=== PATIENT | male | born 1990 | race Two or more races ===

== ENCOUNTER 2025-07-16 13:08 | Emergency (ER) | payer SELFPAY ==
[~2025-07-16] VITALS: Ht 167.6 cm; Wt 85.7 kg
[2025-07-16] MEDS: PANTOPRAZOLE 40 MG TAB PO ONE (13:50)
[2025-07-16 13:51] LABS: Hematocrit 46.7 % (41.0-53.0); Hemoglobin 15.8 g/dL (13.5-17.5); Mean Corpuscular Hemoglobin 28.9 pg (28.0-32.0); Mean Corpuscular Volume 85.2 fL (80.0-100.0); Nucleated Red Blood Cells % 0.0 %
[2025-07-16 13:57] VITALS: BP 110/63; RESP 18; TEMP 98.1; O2SAT 92
--- NOTE | 2025-07-16 14:14 | ED.PDOC ---
HPI Comments 34 y/o M, with PMHx of GERD presents to the ED for CC of chest pain. Patient states, he has been experiencing non-radiating substernal chest pain sudden onset, this morning (07/16/25). Patient relays, symptoms to feel similar to those of GERD. Patient denies shortness of breath, palpitations, headache, dizziness, nausea, or vomiting. No other symptoms or modifying factors present at this time. Chief Complaint: Chest Pain Time Seen by MD: 13:30 Reviewed Notes: Nurses Notes, Medications, Allergies Allergies: Coded Allergies: NO KNOWN ALLERGIES (Unverified , 07/16/25) Mode of Arrival: Ambulatory Severity: Moderate Timing: Days Duration: Since onset Prehospital treatment: None Location: Substernal Radiation: No Radiation Onset: At Rest Cardiac Risk Factors: None PE Risk Factors: None History of: None Modifying Factors: Nothing Associated Signs and Symptoms: None Past Medical History PAST MEDICAL HISTORY: GERD Surgical History: Denies all surgeries Family History Family History: Unknown Social History Smoker: Non-Smoker Alcohol: Denies ETOH Use Drugs: Denies Drug Use Lives In: Home Constitutional: denies: chills, diaphoresis, fatigue, fever, malaise, sweats, weakness, others EENTM: denies: blurred vision, double vision, ear bleeding, ear discharge, ear drainage, ear pain, ear ringing, eye pain, eye redness, hearing loss, mouth pain, mouth swelling, nasal discharge, nose bleeding, nose congestion, nose pain, photophobia, tearing, throat pain, throat swelling, voice changes, others Respiratory: denies: cough, hemoptysis, orthopnea, SOB at rest, shortness of breath, SOB with excertion, stridor, wheezing, others Cardiovascular: reports: chest pain; denies: dizzy spells, diaphoresis, Dyspnea on exertion, edema, irregular heart beat, left arm pain, lightheadedness, palpitations, PND, syncope, others Gastrointestinal: denies: abdomen distended, abdominal pain, blood streaked bowels, constipated, diarrhea, dysphagia, difficulty swallowing, hematemesis, melena, nausea, poor appetite, poor fluid intake, rectal bleeding, rectal pain, vomiting, others Genitourinary: denies: burning, dysuria, flank pain, frequency, hematuria, incontinence, penile discharge, penile sore, pain, testicle pain, testicle swelling, urgency, others Neurological: denies: dizziness, fainting, headache, left sided numbness, left sided weakness, numbness, paresthesia, pre-existing deficit, right sided numbness, right sided weakness, seizure, speech problems, tingling, tremors, weakness, others Musculoskeletal: denies: back pain, gout, joint pain, joint swelling, muscle pain, muscle stiffness, neck pain, others Integumetry: denies: bruises, change in color, change in hair/nails, dryness, laceration, lesions, lumps, rash, wounds, others Allergic/Immunocompromised: denies: Difficulty Healing, Frequent Infections, Hives, Itching, others Hematologic/Lymphatic: denies: anemia, blood clots, easy bleeding, easy bruising, swollen glands, others Endocrine: denies: excessive hunger, excessive sweating, excessive thirst, excessive urination, flushing, intolerance to cold, intolerance to heat, unex plained weight gain, unexplained weight loss, others Psychiatric: denies: anxiety, bipolar disorder, depression, hopeless, panic disorder, schizophrenia, sleepless, suicidal, others All Other Systems: Reviewed and Negative Physical Exam General Appearance: Moderate Distress HEENT: Normal ENT Inspection, Pharynx Normal, TMs Normal Neck: Full Range of Motion, Non-Tender, Normal, Normal Inspection Respiratory: Chest Non-Tender, Lungs Clear, No Accessory Muscle Use, No Respiratory Distress, Normal Breath Sounds Cardiovascular: No Edema, No JVD, No Murmur, No Gallop, Normal Peripheral Pulses, Regular Rate/Rhythm Breast Exam: Deferred Gastrointestinal: No Organomegaly, Non Tender, No Pulsatile Mass, Normal Bowel Sounds, Soft Genitalia: Deferred Pelvic: Deferred Rectal: Deferred Extremities: No calf tenderness, Normal capillary refill, Normal inspection, Normal range of motion, Non-tender, No pedal edema Musculoskeletal : Apperance: Normal Neurologic: Alert, fitness coordinator II-XII nml as Tested, No Motor Deficits, Normal Affect, Normal Mood, No Sensory Deficits Cerebellar Function: Normal Reflexes: Normal Skin: Dry, Normal Color, Warm Peripheral Pulses: 3+ Radial (R), 3+ Radial (L) Lymphatic: No Adenopathy EKG EKG : Pulse Rate (adult): 64 [place]: Normal Cardiac Rhythm: NSR Block: None Hypertrophy: None ST: Normal Was a procedure done? Was a procedure done?: No CP Differential Dx Differential Diagnosis: A-fib, A-Flutter, Angina, Anxiety / Panic Attack, Atrial Dysrhythmia, Electrolyte Disorder Differential Diagnosis: Chest Wall Pain, Costochondritis, Esophageal reflux/spasm, Gastritis X-Ray, Labs, Meds, VS Vital Signs Date Time Temp Pulse Resp B/P (MAP) Pulse Ox O2 Delivery O2 Flow Rate FiO2 07/16/25 14:16 64 07/16/25 13:57 98.1 72 18 110/63 (79) 92 98.1 07/16/25 13:57 72 18 92 Room Air 07/16/25 13:12 64 07/16/25 13:10 97.9 68 16 122/76 97 97.9 Lab Test 07/16/25 14:11 07/16/25 13:28 Range/Units Troponin I High Sensitivity 10 8 </=54 ng/L White Blood Count 7.1 4.4-10.8 10^3/uL Red Blood Count 5.48 4.5-5.90 10^6/uL Hemoglobin 15.8 13.5-17.5 g/dL Hematocrit 46.7 41.0-53.0 % Mean Corpuscular Volume 85.2 80.0-100.0 fL Mean Corpuscular Hemoglobin 28.9 28.0-32.0 pg Mean Corpuscular Hemoglobin Concent 33.9 32.0-36.0 g/dL Red Cell Distribution Width 13.7 11.8-14.3 % Platelet Count 343 140-450 10^3/uL Mean Platelet Volume 7.1 6.9-10.8 fL Neutrophils (%) (Auto) 45.8 37.0-80.0 % Lymphocytes (%) (Auto) 43.8 10.0-50.0 % Monocytes (%) (Auto) 7.1 0.0-12.0 % Eosinophils (%) (Auto) 2.0 0.0-7.0 % Basophils (%) (Auto) 1.3 0.0-2.0 % Neutrophils # (Auto) 3.3 1.6-8.6 10 ^3/uL Lymphocytes # (Auto) 3.1 0.4-5.4 10 ^3/uL Monocytes # (Auto) 0.5 0-1.3 10 ^3/uL Eosinophils # (Auto) 0.1 0-0.8 10 ^3/uL Basophils # (Auto) 0.1 0-0.2 10 ^3/uL Nucleated Red Blood Cells 0.0 % Current Medications Medications (Trade) Dose Ordered Sig/Collin Route Start Time Stop Time Status Last Admin Aspirin 325 mg ONCE ONCE PO 07/16/25 13:30 07/16/25 13:31 DC 07/16/25 13:50 Pantoprazole Sodium (Protonix Tablet) 40 mg ONCE ONCE PO 07/16/25 13:30 07/16/25 13:31 DC 07/16/25 13:50 Patient alert. Came in because of chest pain. Vitals stable. Answering questions. Possible gastritis. No risk factors for coronary artery disease. WBC within normal limits. Cardiac marker within normal limits. EKG within normal limits. Was given prescription of Protonix. Was told to follow up with his primary care physician. Was told to come back if there is any problem. Time of 1ST Reevaluation: 14:00 Reevaluation 1ST: Improved Time of 2ND Reevaluation: 15:01 Reevaluation 2ND: Improved Patient Education/Counseling: Diagnosis, Treatment Family Education/Counseling: No Family Present SEPSIS Sepsis Screen Date sepsis recognized/suspect: Jul 16, 2025 Time Sepsis recognized/suspect: 1310 Recent Procedure: No On Antibiotic Therapy: No Respiratory Rate >20: No Heart Rate >90: No Temp<36 C (96.8 F) or >38.3 C: No SBP <90 or MAP <65 mmHG: No New Acute Mental Status Change: No Is the patient on CPAP, BIPAP,: No Physician Orders Electrocardigram (07/16/25 13:18) Troponin-I Hs (07/16/25 16:21) Vital Signs Date Time Temp Pulse Resp B/P (MAP) Pulse Ox O2 Delivery O2 Flow Rate FiO2 07/16/25 14:16 64 07/16/25 13:57 98.1 72 18 110/63 (79) 92 98.1 07/16/25 13:57 72 18 92 Room Air 07/16/25 13:12 64 07/16/25 13:10 97.9 68 16 122/76 97 97.9 Laboratory Tests Test 07/16/25 13:28 White Blood Count 7.1 10^3/uL (4.4-10.8) Medications Medications Dose Ordered Sig/Collin Route Start Time Stop Time Status Last Admin Dose Admin Aspirin 325 mg ONCE ONCE PO 07/16/25 13:30 07/16/25 13:31 DC 07/16/25 13:50 Pantoprazole Sodium 40 mg ONCE ONCE PO 07/16/25 13:30 07/16/25 13:31 DC 07/16/25 13:50 Departure 1 Departure Time of Disposition: 15:02 Impression: Primary Impression: Gastritis Qualified Codes: K29.00 - Acute gastritis without bleeding Additional Impression: Musculoskeletal chest pain Disposition: 01 HOME / SELF CARE / HOMELESS Condition: Good e-Prescriptions Pantoprazole Sodium Sesquihydr (Protonix) 40 Mg Tab 40 MG PO DAILY for 7 Days, #7 TAB Prov: MARYCARMEN BRANDON MD 07/16/25 Discharged With: Self Critical Care Note Critical Care Time?: No Stability Stability form required: No Heart Score Heart Score: Heart Score Response (Comments) Value History Slightly Suspicious 0 EKG Normal 0 Age <45 0 Risk Factors No known risk factors 0 Troponin Normal limit 0 Total 0 I personally scribed for MARYCARMEN BRANDON MD ([email or web address]) on 07/16/25 at 14:14. Electronically submitted by Karis Juarez ([email or web address]). I personally scribed for MARYCARMEN BRANDON MD ([email or web address]) on 07/16/25 at 14:16. Electronically submitted by Karis Juarez ([email or web address]). MARYCARMEN BRANDON MD Jul 16, 2025 14:14
[2025-07-16 14:16] VITALS: PULSE 64
[2025-07-16] MEDS ORDERED: PANT40TA2 PO (15:02)
--- NOTE | 2025-07-18 12:26 | ECG ---
[facility] Test Date: 2025-07-16 Test Time: 13:12:47 Pat Name: ELOINA KNOX Department: ED Room: Gender: M Directory Assistance Operator: patrick : 1990 Requested By: MARYCARMEN BRANDON Order Number: [id number] Reading MD: Anmol Davies Measurements Intervals [place] Rate: 64 P: 21 ND: 149 QRS: 67 QRSD: 88 T: 34 QT: 395 QTc: 408 Interpretive Statements Sinus rhythm Electronically Signed On 07-18-2025 22:29:02 PDT by Anmol Davies Please click the below link to view image of tracing.
== END 2025-07-16 15:28 | disposition home or self-care (01) ==
LOC: ER 13:08
DX: K29.00 Acute gastritis without bleeding (principal); R07.89 Other chest pain
CPT/HCPCS: 36415; 84484; 85025; 93005